=== PATIENT | male | born 1985 | race Asian ===

== ENCOUNTER 2017-12-08 17:32 | Emergency (ER) | payer BC, MEDICAID ==
[~2017-12-08] VITALS: Ht 172.7 cm; Wt 70.0 kg
[2017-12-08] MEDS ORDERED: IBUPROFEN 800MG TABLET PO ONE (20:00)
[2017-12-08] MEDS ORDERED: LORAZEPAM 1MG TABLET PO ONE (20:00)
[2017-12-08 20:22] VITALS: BP 112/79
== END 2017-12-08 20:45 | disposition home or self-care (01) ==
LOC: ER 17:37
DX: S16.1XXA Strain of muscle, fascia and tendon at neck level, initial encounter (principal); M54.5 Low back pain; W22.10XA Striking against or struck by unspecified automobile airbag, initial encounter; Y93.89 Activity, other specified; Y92.410 Unspecified street and highway as the place of occurrence of the external cause; Y99.8 Other external cause status
CPT/HCPCS: 99283